=== PATIENT | female | born 1955 | race Hispanic/Latino ===

== ENCOUNTER 2019-01-21 12:36 | Observation (INO) | payer SELFPAY ==
--- OUTSIDE RECORDS SUMMARY | 2019-01-21 12:40 | XMS REPORT ---
:1955 [facility] Address [address] [place] [address] Dr. Cope [address] [place] [id number] Care Team Providers Name Role Phone Unavailable Unavailable Unavailable Problems This patient has no known problems. Allergies, Adverse Reactions, Alerts This patient has no known allergies or adverse reactions. Medications This patient has no known medications.
[2019-01-21] MEDS ORDERED: NA CHLORIDE 0.9% 1,000 ML ONE (13:35)
[2019-01-21 13:45] LABS: Absolute Lymphocytes (CBC) 1.2 K/uL (0.7-4.9); Absolute Monocytes 0.4 K/uL (0.1-1.3); Absolute Neutrophil 3.9 K/uL (1.8-8.0); Basophils % 0.4 % (0-1.3); Eosinophils % 1.4 % (0-4.4); Lymphocytes % 20.8 % (15.3-44.8); MPV 8.8 fL (7.6-11.3); Monocytes % 7.6 % (3.3-12.3)
--- NOTE | 2019-01-21 13:48 | EDPHYS ---
Physician Documentation [facility] Name: Rhina Villarreal Age: 63 yrs Sex: Female : 1955 Arrival Date: 01/21/2019 Time: 12:40 Bed 25 Private MD: ED Physician Anibal Benito HPI: 01/21 13:44 This 63 yrs old Female presents to ER via Ambulatory with complaints of kareem Abnormal Lab Results. 13:44 The patient or guardian reports chest pain that is located primarily in the substernal kareem area. Onset: just prior to arrival. The pain does not radiate. Associated signs and symptoms: Pertinent positives: nausea, shortness of breath. The chest pain is described as a pressure, squeezing. Duration: The patient or guardian reports a single episode, that is now resolved. Severity of pain: At its worst the pain was mild in the emergency department the pain has resolved. The patient has not experienced similar symptoms in the past. Historical: - Allergies: 14:11 Lisinopril; ca1 - Home Meds: 12:50 atorvastatin oral oral [Active]; carvedilol oral oral [Active]; sg - PMHx: 12:50 Hypertension; sg - Immunization history:: Adult Immunizations up to date. - Social history:: Smoking status: Patient/guardian denies using tobacco. - Ebola Screening: : Patient negative for fever greater than or equal to 101.5 degrees Fahrenheit, and additional compatible Ebola Virus Disease symptoms Patient denies exposure to infectious person Patient denies travel to an Ebola-affected area in the 21 days before illness onset No symptoms or risks identified at this time. - Family history:: not pertinent. ROS: 13:44 Constitutional: Negative for fever, chills, and weight loss, Eyes: Negative for injury, kareem pain, redness, and discharge, ENT: Negative for injury, pain, and discharge, Neck: Negative for injury, pain, and swelling, Respiratory: Negative for shortness of breath, cough, wheezing, and pleuritic chest pain, Abdomen/GI: Negative for abdominal pain, nausea, vomiting, diarrhea, and constipation, Back: Negative for injury and pain, : Negative for injury, bleeding, discharge, and swelling, MS/Extremity: Negative for injury and deformity, Skin: Negative for injury, rash, and discoloration, Neuro: Negative for headache, weakness, numbness, tingling, and seizure, Psych: Negative for depression, anxiety, suicide ideation, homicidal ideation, and hallucinations, Allergy/Immunology: Negative for hives, rash, and allergies, Endocrine: Negative for neck swelling, polydipsia, polyuria, polyphagia, and marked weight changes. 13:44 Cardiovascular: Positive for chest pain, of the chest. Exam: 13:44 Constitutional: This is a well developed, well nourished patient who is awake, alert, kareem and in no acute distress. Head/Face: Normocephalic, atraumatic. Eyes: Pupils equal round and reactive to light, extra-ocular motions intact. Lids and lashes normal. Conjunctiva and sclera are non-icteric and not injected. Cornea within normal limits. Periorbital areas with no swelling, redness, or edema. ENT: Nares patent. No nasal discharge, no septal abnormalities noted. Tympanic membranes are normal and external auditory canals are clear. Oropharynx with no redness, swelling, or masses, exudates, or evidence of obstruction, uvula midline. Mucous membranes moist. Neck: Trachea midline, no thyromegaly or masses palpated, and no cervical lymphadenopathy. Supple, full range of motion without nuchal rigidity, or vertebral point tenderness. No Meningismus. Chest/axilla: Normal chest wall appearance and motion. Nontender with no deformity. No lesions are appreciated. Cardiovascular: Regular rate and rhythm with a normal S1 and S2. No gallops, murmurs, or rubs. Normal PMI, no JVD. No pulse deficits. Respiratory: Lungs have equal breath sounds bilaterally, clear to auscultation and percussion. No rales, rhonchi or wheezes noted. No increased work of breathing, no retractions or nasal flaring. Abdomen/GI: Soft, non-tender, with normal bowel sounds. No distension or tympany. No guarding or rebound. No evidence of tenderness throughout. Back: No spinal tenderness. No costovertebral tenderness. Full range of motion. Female : Normal external genitalia. Skin: Warm, dry with normal turgor. Normal color with no rashes, no lesions, and no evidence of cellulitis. MS/ Extremity: Pulses equal, no cyanosis. Neurovascular intact. Full, normal range of motion. Neuro: Awake and alert, GCS 15, oriented to person, place, time, and situation. Cranial nerves II-XII grossly intact. Motor strength 5/5 in all extremities. Sensory grossly intact. Cerebellar exam normal. Normal gait. Psych: Awake, alert, with orientation to person, place and time. Behavior, mood, and affect are within normal limits. Vital Signs: 12:52 BP 177 / 74; Pulse 77; Resp 18; Temp 98.2; Pulse Ox 99% on R/A; Weight 59.87 kg; Height sg 4 ft. 11 in. (149.86 cm); Pain 4/10; 14:11 BP 161 / 79; Pulse 54; Resp 15 S; Pulse Ox 97% on R/A; ca1 15:15 BP 177 / 82; Pulse 60; Resp 16 S; Pulse Ox 58% on R/A; ca1 16:28 BP 176 / 86; Pulse 58; Resp 17; Pulse Ox 97% on R/A; ca1 12:52 Body Mass Index 26.66 (59.87 kg, 149.86 cm) MDM: 13:02 Patient medically screened. [facility] 13:46 Data reviewed: vital signs, nurses notes, lab test result(s), EKG, radiologic studies, kareem plain films. 01/21 13:03 Order name: Basic Metabolic Panel; Complete Time: 14:21 [facility] 01/21 13:03 Order name: CBC with Diff; Complete Time: 13:58 [facility] 01/21 13:03 Order name: LFT's; Complete Time: 14:21 [facility] 01/21 13:03 Order name: Magnesium; Complete Time: 14:21 [facility] 01/21 13:03 Order name: NT PRO-BNP; Complete Time: 14:21 [facility] 01/21 13:03 Order name: PT-INR; Complete Time: 14:21 [facility] 01/21 13:03 Order name: Troponin (emerg Dept Use Only); Complete Time: 14:21 [facility] 01/21 13:03 Order name: XRAY Chest (1 view); Complete Time: 14:21 [facility] 01/21 13:40 Order name: Urine Dipstick--Ancillary (enter results); Complete Time: 14:21 in 01/21 13:03 Order name: EKG; Complete Time: 13:06 kareem 01/21 13:03 Order name: Cardiac monitoring; Complete Time: 13:18 [facility] 01/21 13:03 Order name: EKG - Nurse/Tech; Complete Time: 13:18 [facility] 01/21 13:03 Order name: IV Saline Lock; Complete Time: : [facility] 01/21 13:03 Order name: Labs collected and sent; Complete Time: : [facility] 01/21 13:03 Order name: O2 Per Protocol; Complete Time: 13:18 [facility] 01/21 13:03 Order name: O2 Sat Monitoring; Complete Time: : [facility] 01/21 13:03 Order name: Urine Dipstick-Ancillary (obtain specimen); Complete Time: :18 [facility] Administered Medications: 13:24 Drug: NS 0.9% 1000 ml Route: IV; Rate: 75 ml/hr; Site: left antecubital; ca1 16:35 Follow up: IV Status: Infusion continued upon admission ca1 13:56 Drug: Pepcid 20 mg Route: IVP; Site: left antecubital; ca1 14:23 Follow up: Response: No adverse reaction ca1 13:57 Drug: Aspirin Chewable Tablet 324 mg Route: PO; ca1 15:16 Follow up: Response: No adverse reaction ca1 13:57 Not Given (Patient Refused; Pt reports allergy to Lisinopril): Lisinopril 10 mg PO once ca1 14:10 Drug: Lovenox 1 mg/kg Route: Sub-Q; Site: left lower abdomen; ca1 15:16 Follow up: Response: No adverse reaction ca1 Disposition: 01/21/19 13:47 Hospitalization ordered by Drew Jiménez for Observation. Preliminary diagnosis are Chest pain, unspecified, Essential (primary) hypertension. - Bed requested for Telemetry/MedSurg (observation). - Status is Observation. ca1 - Condition is Stable. - Problem is new. - Symptoms have improved. UTI on Admission? No Signatures: Dispatcher [employer] Arturo Caballero RN RN Anibal Walker MD MD cha Solis, Maria ms Acob, Cheryl, RN RN ca1 Corrections: (The following items were deleted from the chart) 14:11 12:50 Allergies: No Known Allergies; sg ca1 15:47 13:47 Hospitalization Ordered by Drew Jiménez MD for Observation. Preliminary diagnosis ms is Chest pain, unspecified; Essential (primary) hypertension. Bed requested for Telemetry/MedSurg (observation). Status is Observation. Condition is Stable. Problem is new. Symptoms have improved. UTI on Admission? No. [facility] 16:40 15:47 01/21/2019 13:47 Hospitalization Ordered by Drew Jiménez MD for Observation. ca1 Preliminary diagnosis is Chest pain, unspecified; Essential (primary) hypertension. Bed requested for Telemetry/MedSurg (observation). Status is Observation. Condition is Stable. Problem is new. Symptoms have improved. UTI on Admission? No. ms
--- NOTE | 2019-01-21 13:48 | ER ---
Nurse's Notes [facility] Name: Rhina Villarreal Age: 63 yrs Sex: Female : 1955 Arrival Date: 01/21/2019 Time: 12:40 Bed 25 Private MD: Diagnosis: Chest pain, unspecified;Essential (primary) hypertension Presentation: 01/21 12:51 Presenting complaint: Patient states: Sent by the PCP for a low HR, in the 30's and sg having high blood pressure with readings in the 180'. Transition of care: patient was not received from another setting of care. Onset of symptoms was January 21, 2019. Risk Assessment: Do you want to hurt yourself or someone else? Patient reports no desire to harm self or others. Initial Sepsis Screen: Does the patient meet any 2 criteria? No. Patient's initial sepsis screen is negative. Does the patient have a suspected source of infection? No. Patient's initial sepsis screen is negative. Care prior to arrival: None. 12:51 Method Of Arrival: Ambulatory sg 12:51 Acuity: KELVIN 3 sg Historical: - Allergies: 14:11 Lisinopril; ca1 - Home Meds: 12:50 atorvastatin oral oral [Active]; carvedilol oral oral [Active]; sg - PMHx: 12:50 Hypertension; sg - Immunization history:: Adult Immunizations up to date. - Social history:: Smoking status: Patient/guardian denies using tobacco. - Ebola Screening: : Patient negative for fever greater than or equal to 101.5 degrees Fahrenheit, and additional compatible Ebola Virus Disease symptoms Patient denies exposure to infectious person Patient denies travel to an Ebola-affected area in the 21 days before illness onset No symptoms or risks identified at this time. - Family history:: not pertinent. Screenin:25 Abuse screen: Denies threats or abuse. Denies injuries from another. Nutritional ca1 screening: No deficits noted. Tuberculosis screening: No symptoms or risk factors identified. Fall Risk IV access (20 points). Assessment: 13:25 General: Appears in no apparent distress. comfortable, Behavior is calm, cooperative, ca1 appropriate for age. Pain: Complains of pain in anterior aspect of left upper chest Pain does not radiate. Pain currently is 4 out of 10 on a pain scale. Quality of pain is described as squeezing, Pain began last night. Neuro: Level of Consciousness is awake, alert, obeys commands, Oriented to person, place, time, situation. Cardiovascular: Heart tones S1 S2 present Capillary refill < 3 seconds Patient's skin is warm and dry. Rhythm is sinus rhythm. Respiratory: Airway is patent Respiratory effort is even, unlabored, Respiratory pattern is regular, symmetrical, Breath sounds are clear bilaterally. GI: Abdomen is flat, non-distended, Bowel sounds present X 4 quads. Abd is soft and non tender X 4 quads. : No deficits noted. No signs and/or symptoms were reported regarding the genitourinary system. EENT: No deficits noted. No signs and/or symptoms were reported regarding the EENT system. Derm: Skin is intact, is healthy with good turgor, Skin is pink, warm \T\ dry. Musculoskeletal: Circulation, motion, and sensation intact. Capillary refill < 3 seconds, Range of motion: intact in all extremities. 14:11 Reassessment: Patient appears in no apparent distress at this time. Patient and/or ca1 family updated on plan of care and expected duration. Pain level reassessed. Patient is alert, oriented x 3, equal unlabored respirations, skin warm/dry/pink. 15:15 Reassessment: Patient appears in no apparent distress at this time. Patient is alert, ca1 oriented x 3, equal unlabored respirations, skin warm/dry/pink. 16:12 Reassessment: Patient appears in no apparent distress at this time. Patient is alert, ca1 oriented x 3, equal unlabored respirations, skin warm/dry/pink. Called 2nd floor for report. Nurse will call back. Vital Signs: 12:52 BP 177 / 74; Pulse 77; Resp 18; Temp 98.2; Pulse Ox 99% on R/A; Weight 59.87 kg; Height sg 4 ft. 11 in. (149.86 cm); Pain 4/10; 14:11 BP 161 / 79; Pulse 54; Resp 15 S; Pulse Ox 97% on R/A; ca1 15:15 BP 177 / 82; Pulse 60; Resp 16 S; Pulse Ox 58% on R/A; ca1 16:28 BP 176 / 86; Pulse 58; Resp 17; Pulse Ox 97% on R/A; ca1 12:52 Body Mass Index 26.66 (59.87 kg, 149.86 cm) ED Course: 12:40 Patient arrived in ED. mr 12:40 Arm band placed on. sg 12:52 Triage completed. sg 13:00 Robyn Jesus, TONIO is Primary Nurse. ca1 13:02 Anibal Benito MD is Attending Physician. kareem 13:19 EKG done, by anaesthetic technician. reviewed by Anibal Benito MD. sm3 13:25 Patient has correct armband on for positive identification. Placed in gown. Bed in low ca1 position. Call light in reach. Side rails up X 1. bridal gown fitter on. Pulse ox on. NIBP on. Warm blanket given. 13:25 No provider procedures requiring assistance completed. Inserted saline lock: 20 gauge ca1 in left antecubital area, using aseptic technique. ,using aseptic technique. by Martha Hoang, security guard dispatcher Blood collected. 13:38 X-ray completed. Portable x-ray completed in exam room. Patient tolerated procedure sw well. 13:42 XRAY Chest (1 view) In Process Unspecified. EDMS 13:47 Drew Jiménez MD is Hospitalizing Provider. kareem 16:33 Patient admitted, IV remains in place. ca1 Administered Medications: 13:24 Drug: NS 0.9% 1000 ml Route: IV; Rate: 75 ml/hr; Site: left antecubital; ca1 16:35 Follow up: IV Status: Infusion continued upon admission ca1 13:56 Drug: Pepcid 20 mg Route: IVP; Site: left antecubital; ca1 14:23 Follow up: Response: No adverse reaction ca1 13:57 Drug: Aspirin Chewable Tablet 324 mg Route: PO; ca1 15:16 Follow up: Response: No adverse reaction ca1 13:57 Not Given (Patient Refused; Pt reports allergy to Lisinopril): Lisinopril 10 mg PO once ca1 14:10 Drug: Lovenox 1 mg/kg Route: Sub-Q; Site: left lower abdomen; ca1 15:16 Follow up: Response: No adverse reaction ca1 Outcome: 13:47 Decision to Hospitalize by Provider. kareem 16:33 Admitted to Med/surg accompanied by tech, via wheelchair, room 215, with chart, Report ca1 called to Zulema Castaneda RN 16:34 Condition: stable ca1 16:34 Instructed on the need for admit. 16:40 Patient left the ED. ca1 Signatures: Dispatcher [employer] EDArturo Mojica RN RN Anibal Walker MD MD cha Rivera, Bebe mr Sam, Leslie Hall 3 Robyn Jesus RN RN ca1 Corrections: (The following items were deleted from the chart) 14:11 12:50 Allergies: No Known Allergies; ca1
[2019-01-21 13:50] LABS: Protime INR 1.02
--- NOTE | 2019-01-21 13:58 | RAD REPORT ---
EXAM DESCRIPTION: RAD - Chest Single View - 01/21/2019 1:41 pm CLINICAL HISTORY: Chest pain, bradycardia COMPARISON: None. TECHNIQUE: AP portable chest image was obtained 1340 hours . FINDINGS: Lungs are clear. Heart and vasculature are normal. No measurable pleural effusion and no p neumothorax. No acute bony abnormality seen. No acute aortic findings suspected. IMPRESSION: No acute cardiopulmonary process.
[2019-01-21 14:06] LABS: ALT/SGPT 20 U/L (12-78); AST/SGOT 15 U/L (15-37); Albumin 3.8 g/dL (3.4-5.0); Alkaline Phosphatase 110 U/L (45-117); BUN Blood Urea Nitrogen 17 mg/dL (7-18); Bicarbonate 26 mmol/L (21-32); Bilirubin Direct 0.1 mg/dL (0-0.2); Bilirubin Total 0.3 mg/dL (0.2-1.0); Glucose Level 128 mg/dL (74-106); Magnesium 2.2 mg/dL (1.8-2.4); NT PRO-BNP 150 pg/mL (<125); Potassium 3.8 mmol/L (3.5-5.1); Protein, Total 8.3 g/dL (6.4-8.2); Sodium Level 141 mmol/L (136-145); Troponin (Emerg Dept Use Only) < 0.02 ng/mL (0.0-0.045)
[2019-01-21] MEDS ORDERED: ASPIRIN 81 MG CHEWABLE TABLET ONE (14:06)
[2019-01-21] MEDS ORDERED: LISINOPRIL 10 MG TAB ONE (14:06)
[2019-01-21] MEDS ORDERED: FAMOTIDINE 20 MG/2 ML VIAL IV ONE (14:06)
[2019-01-21] MEDS ORDERED: ENOXAPARIN 60 MG/0.6 ML SQ ONE (14:07)
[2019-01-21 14:13] LABS: Urine Blood NEGATIVE (NEG); Urine Glucose NEGATIVE (NEG); Urine Protein NEGATIVE (NEG)
[2019-01-21] MEDS ORDERED: MORPHINE 2 MG/ML SYR IV PRN (17:10)
[2019-01-21] MEDS ORDERED: HYDRALAZINE HCL 20 MG/ML VIAL IV PRN (17:10)
[2019-01-21] MEDS ORDERED: NITROGLYCERIN 0.4 MG/TAB SL PRN (17:10)
[2019-01-21 17:22] VITALS: BMI 26.1
[2019-01-21] MEDS ORDERED: METOPROLOL TAR 25 MG TAB PO SCH (21:00)
[2019-01-21] MEDS ORDERED: ATORVASTATIN 40 MG TAB PO SCH (21:00)
[2019-01-21] MEDS: CARVEDILOL 6.25 MG TAB PO SCH (21:42)
[2019-01-21] MEDS: RANITIDINE 150 MG TABLET PO SCH (21:42)
[2019-01-21] MEDS ORDERED: ACETAMINOPHEN 500 MG TAB PO PRN (22:12)
--- NOTE | 2019-01-22 02:47 | HP ---
Date of Admission: 01/21/2019 Chief Complaint: Chest pain. History Of Present Illness: The patient is a 63-year-old female with past medical history of hypertension and hyperlipidemia; comes in with sudden onset of chest pain that was left-sided, nonradiating, sharp; not associated with any nausea, vomiting, diaphoresis, or shortness of breath. The patient's symptoms are constant, moderate, progressively worsening. The patient decided to come to the ER for further evaluation. The patient's vital signs were stable. Her workup showed a negative troponin level. EKG did not show any acute changes. The patient was then given aspirin, Lovenox, Pepcid, and normal saline bolus. She was then referred for admission. When seen in the ER, she was awake, alert , oriented x3, in some mild distress. Past Medical History: Hypertension, hyperlipidemia. The patient reports some history of gastritis, but not on any current medications. Past Surgical History: The patient had and tubal ligation. Allergies: TO LISINOPRIL. Medications: The patient takes atorvastatin and carvedilol. Family History: Positive for coronary artery disease in the father who had bypass surgery at age of 74. Social History: Patient denies any tobacco use, alcohol use, or illicit drug use. The patient is independent in her activities of daily living. Review of Systems: Eleven point systems reviewed, negative except as per HPI. Physical Examination: Vital Signs: Blood pressure 177/74, pulse 77, respirations 18, temperature 98.2 , pulse ox 99% on room air. General: Awake, alert, oriented x3. Some mild distress. HEENT: Normocephalic, atraumatic. PERRLA. EOMI. Moist mucous membranes. Oropharynx is clear. Conjunctivae are anicteric. Neck: Supple. No JVD. Trachea midline. CV: S1, S2. Regular rate and rhythm. Peripheral pulses present. A 3/6 holosystolic murmur is present. Peripheral pulses present 2+. Respiratory: Clear to auscultation bilaterally. No wheezing or stridor. No use of accessory muscles. Gastrointestinal: Abdomen is soft, nontender, nondistended. Positive bowel sounds. No guarding or rigidity. Extremities: No clubbing, cyanosis, or edema. No calf tenderness. Neuro: Cranial nerves 2 through 12 intact grossly. No focal neurological deficits. Speech is normal. Skin: No rashes. Normal skin turgor. Psych: Mood is okay. Affect is full. Insight and judgment are good. Laboratory Data: Sodium 141, potassium 3.8, chloride 109, CO2 26, BUN 17, creatinine 0.67, glucose 128, calcium 8.6, magnesium 2.2. Troponin less than 0.02. BNP 150. INR 1.02. WBC 5.6, H and H 13.4/40, platelets 245, neutrophils 69%. UA negative. Chest x-ray, personally reviewed, shows no acute cardiopulmonary process. Assessment And Plan: A 63-year-old female with 1. Chest pain. We will start on chest pain guidelines. We will continue with statin, aspirin, beta-jackson, nitroglycerin, and morphine p.r.n. Avoid KADI inhibitors due to allergy to lisinopril. We will consult Cardiology. Repeat cardiac enzymes and EKG as needed. The patient may benefit from cardiac stress test. We will obtain echocardiogram to rule out any wall motion abnormality. HEART score 4. 2. Essential hypertension, not well controlled. We will add p.r.n. hydralazine. 3. Mixed hyperlipidemia. We will obtain lipid panel in a.m. Continue statin. 4. Hyperglycemia, may be acute phase reactant. Given the patient's risk factors, we will check hemoglobin A1c. 5. Deep vein thrombosis prophylaxis. Plan: Admit to Med/Surg, place as observation. We will discuss with Cardiology. Likely discharge in the next 24 hours if ACS is ruled out and cleared by Cardiology. We will place on ranitidine for GI prophylaxis. The patient did report previous history of gastritis. /COREEN Voice ID: [id number] TESS
[2019-01-22 05:30] LABS: Absolute Lymphocytes (CBC) 2.1 K/uL (0.7-4.9); Absolute Monocytes 0.7 K/uL (0.1-1.3); Basophils % 0.6 % (0-1.3); Eosinophils % 1.8 % (0-4.4); Lymphocytes % 29.6 % (15.3-44.8); MPV 8.5 fL (7.6-11.3); RBC Red Blood Cell Count 4.43 M/uL (3.86-4.86)
[2019-01-22 05:50] LABS: Potassium 4.1 mmol/L (3.5-5.1)
[2019-01-22] MEDS ORDERED: REGADENOSON 0.4 MG/5 ML SYR IV ONE (08:06)
--- NOTE | 2019-01-22 08:06 | EKG ---
Test Date: 2019-01-21 Test Time: 13:15:18 Balancing Machine Set Up Worker: MATT MEASUREMENT RESULTS: Intervals: Rate: 60 IA: 148 QRSD: 84 QT: 396 QTc: 396 [place]: P: 64 IA: 148 QRS: 14 T: 66 INTERPRETIVE STATEMENTS: Normal sinus rhythm Normal ECG No previous ECG available for comparison Electronically Signed On 01-22-19 08:04:50 CDT by Nic Rogers
[2019-01-22 08:28] VITALS: O2SAT 96
[2019-01-22] MEDS ORDERED: ASPIRIN EC 81 MG TAB PO SCH (09:00)
[2019-01-22] MEDS ORDERED: ENOXAPARIN 40 MG/0.4 ML SQ SCH (09:00)
--- NOTE | 2019-01-22 09:42 | RAD REPORT ---
EXAM DESCRIPTION: NM - Rest Stress Cardiac Imaging - 01/22/2019 9:21 am CLINICAL HISTORY: Chest pain COMPARISON: None. TECHNIQUE: The patient was administered approximately 10 mCi of Tc 99m Sestamibi prior to resting SP ECT imaging of the heart. The patient was then administered approximately 30 mCi of Tc 99m Sestamibi following exercise or pharmacologic stress. Multiplanar SPECT images were reviewed. FINDINGS: The end diastolic volume is 61 ml, the end systolic volume is 15 ml, and the ejection frac tion is 76 %. Physiologic distribution of the radiopharmaceutical through the myocardium is noted. No stress induce d ischemic defect is seen to suggest stress induced ischemia. No fixed defect is seen to suggest hibe rnating myocardium or scarred myocardium. IMPRESSION: No stress induced ischemia or other suspicious findings.
--- NOTE | 2019-01-22 10:00 | TREADPHA ---
DX: CHEST PAIN Date of Study: 01/22/2019 Ht: 4 11 Wt: 129 lb 7 oz Consulting Physician: DESI MEDICATIONS: TYLENOL, ASPIRIN, LIPITOR, COREG, LOVENOX, APRESOLINE, NITROSTAT HISTORY: 63 YEAR OLD FEMALE WITH COMPLAINTS OF CHEST PAIN. HISTORY OF HYPERTENSION, GASTRITIS, HYPERLIPIDEMIA, NON SMOKER, NON DRINKER. PHYSICIAL EXAMINATION: RESTING B.P.: 188/88 RESTING H.R.: 54 RESTING EKG: SINUS BRADYCARDIA, OTHERWISE NORMAL PROTOCOL: LEXISCAN EXERCISE TIME: 3:30 B.P. AT PEAK STRESS: 139/79 IMPRESSION: LEXISCAN INJECTED, FOLLOWED BY CARDIOLITE PER PROTOCOL. SEE NUCLEAR MEDICINE REPORT. NO SUPRAVENTRICULAR TACHYCARDIA, VENTRICULAR TACHYCARDIA, PREMATURE ATRIAL COMPLEXES OR PREMATURE VENTRICULAR COMPLEXES. PATIENT REPORTED 3/10 CHEST PAIN DURING PROCEDURE. NON DIAGNOSTIC EKG WITH LEXISCAN STRESS.
[2019-01-22] MEDS: RANITIDINE 150 MG TABLET PO SCH (10:01)
[2019-01-22] MEDS: CARVEDILOL 6.25 MG TAB PO SCH (10:01)
--- NOTE | 2019-01-22 13:53 | ECHO ---
HEIGHT: 4 ft 11 in WEIGHT: 129 lb 7 oz DATE OF STUDY: 01/22/[address]: Drew Jiménez MD 2-DIMENSIONAL: YES M.MODE: YES DOPPLER: YES COLOR FLOW: YES TDS: NO PORTABLE: NO DEFINITY: NO BUBBLE STUDY: NO DIAGNOSIS: CHEST PAIN CARDIAC HISTORY: CATHERIZATION: NO SURGERY: NO PROSTHETIC VALVE: NO PACEMAKER: NO MEASUREMENTS (cm) DIASTOLIC (NORMALS) SYSTOLIC (NORMALS) IVSd 0.9 (0.6-1.2) LA Diam 3.1 (1.9-4.0) LVEF 78% LVIDd 4.4 (3.5-5.7) LVIDs 2.4 (2.0-3.5) %FS 46% LVPWd 1.0 (0.6-1.2) Ao Diam 2.4 (2.0-3.7) 2 DIMENSIONAL ASSESSMENT: RIGHT ATRIUM: NORMAL LEFT ATRIUM: NORMAL RIGHT VENTRICLE: NORMAL LEFT VENTRICLE: NORMAL TRICUSPID VALVE: NORMAL MITRAL VALVE: NORMAL PULMONIC VALVE: NORMAL AORTIC VALVE: NORMAL PERICARDIAL EFFUSION: NONE AORTIC ROOT: NORMAL LEFT VENTRICULAR WALL MOTION: NORMAL. DOPPLER/COLOR FLOW: NORMAL. COMMENTS: NORMAL 2D ECHOCARDIOGRAM WITH DOPPLER. TECHNOLOGIST: ALEXY MARCUM
[2019-01-22 14:52] VITALS: BP 128/72; TEMP 98.3
--- NOTE | 2019-01-22 23:49 | DS ---
Date of Discharge: 01/22/2019 Consultants: Dr. Rogers with Cardiology. Procedures: Cardiac stress test which was negative for any stress-induced ischemia. Discharge Diagnoses: 1.Chest pain, ACS ruled out. 2.Essential hypertension, not well controlled. 3.Mixed hyperlipidemia. 4.Hyperglycemia. 5.Gastritis. Hospital Course: The patient is a 63-year-old female with past medical history of hypertension and h yperlipidemia, who comes in with chest pain. The patient was admitted to the hospital to rule out ac asa'[place] coronary syndrome. The patient was started on chest pain guidelines. Her cardiac enzymes were n egative. She had improvement in her condition. Cardiology was consulted. Cardiac stress test was o btained, which was negative, did not show any stress-induced ischemia. Her ejection fraction was wit hin normal limits. Echocardiogram was also done. The patient's symptoms had improved. She did repo rt being diagnosed with gastritis approximately 1 year ago after endoscopy. She was on proton pump i nhibitors, however, had stopped and has not followed up with her GI. The patient was cleared by card iology standpoint as her symptoms resolved, ACS was ruled out, and cardiac stress test was negative. The patient was then discharged home in a stable condition. Activity: As tolerated. Medications: As per medication reconciliation list. Followup: Follow up with primary care physician in 2-3 days. Follow up with newspaper photographer, Dr. Milagros kaur, in 2 weeks. Follow up with GI in 2 weeks. Return to ER for worsening condition. Diet: Heart healthy. Physical Examination: General: Awake, alert, oriented x3. No acute distress. CV: S1, S2. No murmurs. Respiratory: Moving air well bilaterally. No wheezing. Gastrointestinal: Abdomen is soft, nontender, nondistended. Positive bowel sounds. Extremities: No clubbing, cyanosis, or edema. Neuro: Nonfocal. SA/MODL Voice ID: [id number] Report ID: [id number]
== END 2019-01-22 13:12 | disposition home or self-care (01) ==
LOC: ER 12:36 → ERHOLD 14:40 → 2ND 16:33
PROVIDERS: ADMIT Family Medicine; ATTEND Family Medicine
DX: R07.9 Chest pain, unspecified (principal); I10 Essential (primary) hypertension; E78.2 Mixed hyperlipidemia; R73.9 Hyperglycemia, unspecified; K29.70 Gastritis, unspecified, without bleeding; Z79.899 Other long term (current) drug therapy; Z82.49 Family history of ischemic heart disease and other diseases of the circulatory system
CPT/HCPCS: 36415; 71045; 78452; 80048; 80061; 80076; 81003; 83036; 83735; 83880; 84484; 85025; 85610; 93005; 93017; 93306; 94760; 96361; 96372; 96374; 99285; A9500; G0378; J1650; J2785; J7030

== ENCOUNTER 2020-09-22 16:09 | Emergency (ER) | payer SELFPAY ==
--- NOTE | 2020-09-22 21:07 | RAD REPORT ---
EXAM DESCRIPTION: RAD - Chest Single View - 09/22/2020 9:00 pm CLINICAL HISTORY: CHEST PAIN Chest pain. COMPARISON: Chest Single View dated 01/21/2019 FINDINGS: Portable technique limits examination quality. The lungs are grossly clear. The heart is normal in size. No displaced fractures. IMPRESSION: No acute intrathoracic process suspected.
[2020-09-22 21:19] LABS: Absolute Lymphocytes (CBC) 2.3 K/uL (0.7-4.9); Basophils % 0.7 % (0-1.3); Hematocrit 39.8 % (36.0-45.0); MPV 7.7 fL (7.6-11.3); RBC Red Blood Cell Count 4.72 M/uL (3.86-4.86)
[2020-09-22 21:24] LABS: Protime INR 1.05
[2020-09-22 21:44] LABS: ALT/SGPT 26 U/L (12-78); AST/SGOT 17 U/L (15-37); Alkaline Phosphatase 120 U/L (45-117); BUN Blood Urea Nitrogen 17 mg/dL (7-18); Bicarbonate 26 mmol/L (21-32); Bilirubin Direct < 0.1 mg/dL (0-0.2); Bilirubin Total 0.5 mg/dL (0.2-1.0); Glucose Level 90 mg/dL (74-106); Magnesium 2.5 mg/dL (1.8-2.4); NT PRO-BNP 51 pg/mL (<125); Potassium 3.7 mmol/L (3.5-5.1); Protein, Total 8.6 g/dL (6.4-8.2); Sodium Level 142 mmol/L (136-145); Troponin (Emerg Dept Use Only) < 0.02 ng/mL (0.0-0.045)
[2020-09-22] MEDS ORDERED: HYDRALAZINE HCL 20 MG/ML VIAL ONE (22:37)
--- NOTE | 2020-09-22 23:19 | ER ---
Nurse's Notes [facility] Name: Rhina Villarreal Age: 64 yrs Sex: Female : 1955 Arrival Date: 09/22/2020 Time: 16:11 Bed 16 Private MD: Diagnosis: Hypertensive urgency;Chest pain, unspecified Presentation: 09/22 16:25 Chief complaint: Patient states: BISHOP, CP, and elevated BP for 2-3 days. BP at home 191 ll1 systolic. + nausea. Coronavirus screen: Client denies travel out of the [place] in the last 14 days. Ebola Screen: Patient denies travel to an Ebola-affected area in the 21 days before illness onset. Initial Sepsis Screen: Does the patient meet any 2 criteria? No. Patient's initial sepsis screen is negative. Does the patient have a suspected source of infection? Yes: S/S of meningitis or endocarditis Other: BISHOP. Risk Assessment: Do you want to hurt yourself or someone else? Patient reports no desire to harm self or others. 16:25 Method Of Arrival: Ambulatory ll1 16:25 Acuity: KELVIN 3 ll1 16:26 Onset of symptoms was September 20, 2020. ll1 Historical: - Allergies: 16:25 Lisinopril; ll1 - Home Meds: 21:43 atorvastatin Oral [Active]; carvedilol Oral [Active]; em - PMHx: 16:25 Hypertension; High Cholesterol; ll1 - Immunization history:: Flu vaccine is up to date. - Social history:: Smoking status: Patient denies any tobacco usage or history of. Screenin:45 Abuse screen: Denies threats or abuse. Nutritional screening: No deficits noted. vg1 Tuberculosis screening: No symptoms or risk factors identified. Fall Risk No fall in past 12 months (0 pts). No secondary diagnosis (0 pts). IV access (20 points). Ambulatory Aid- None/Bed Rest/Nurse Assist (0 pts). Gait- Normal/Bed Rest/Wheelchair (0 pts) Mental Status- Oriented to own ability (0 pts). Total Wright Fall Scale indicates No Risk (0-24 pts). Assessment: 21:41 General: Appears in no apparent distress. comfortable, Behavior is calm, cooperative. em Pain: Complains of pain in head Pain currently is 6 out of 10 on a pain scale. Neuro: Level of Consciousness is awake, alert, obeys commands, Oriented to person, place, time, situation. Cardiovascular: Patient's skin is warm and dry. Respiratory: Airway is patent Respiratory effort is even, unlabored, Respiratory pattern is regular, symmetrical. GI: Reports nausea, Patient currently denies diarrhea, vomiting. : No signs and/or symptoms were reported regarding the genitourinary system. EENT: No signs and/or symptoms were reported regarding the EENT system. Derm: Skin is intact, is healthy with good turgor. Musculoskeletal: Circulation, motion, and sensation intact. 22:44 Reassessment: Patient appears in no apparent distress at this time. No changes from vg1 previously documented assessment. Patient and/or family updated on plan of care and expected duration. Pain level reassessed. Patient is alert, oriented x 3, equal unlabored respirations, skin warm/dry/pink. 23:21 Reassessment: Patient appears in no apparent distress at this time. Patient and/or vg1 family updated on plan of care and expected duration. Pain level reassessed. Patient is alert, oriented x 3, equal unlabored respirations, skin warm/dry/pink. Vital Signs: 16:25 BP 186 / 89; Pulse 78; Resp 16; Temp 98.7; Pulse Ox 98% on R/A; ll1 16:26 Weight 59.42 kg; Height 4 ft. 10 in. (147.32 cm); Pain 0/10; ll1 20:43 BP 158 / 89 RA (auto/reg); Pulse 81; Resp 18; Temp 98.2; Pulse Ox 98% on R/A; jp3 21:00 BP 151 / 94; Pulse 57; Resp 14; Pulse Ox 97% on R/A; em 22:00 BP 143 / 74; Pulse 54; Resp 16; Pulse Ox 98% on R/A; vg1 22:30 BP 131 / 68; Pulse 56; Resp 16; Pulse Ox 100% on R/A; vg1 23:00 BP 144 / 72; Pulse 62; Resp 16; Pulse Ox 99% on R/A; vg1 16:26 Body Mass Index 27.38 (59.42 kg, 147.32 cm) ll1 Lina Coma Score: 09/23 04:40 Eye Response: spontaneous(4). Verbal Response: oriented(5). Motor Response: obeys tw4 commands(6). Total: 15. ED Course: 09/22 16:11 Patient arrived in ED. ds1 16:24 Arm band placed on. ll1 16:26 Triage completed. ll1 16:37 Arsh Arzola MD is Attending Physician. kdr 16:37 EKG completed in triage. Results shown to MD. ll1 19:30 Attending Physician role handed off by Arsh Arzola MD tw4 19:30 Raul Boothe MD is Attending Physician. tw4 20:43 Flakita Ramsey, RN is Primary Nurse. vg1 20:44 Bed in low position. Call light in reach. Side rails up X 1. Warm blanket given. Verbal jp3 reassurance given. equipment monitor phototypesetting on. Pulse ox on. NIBP on. 20:44 Patient maintains SpO2 saturation greater than 95% on room air. jp3 21:00 XRAY Chest (1 view) In Process Unspecified. EDMS 23:18 Nic Rogers MD is Referral Physician. tw4 23:18 Reginald Mancini MD is Referral Physician. tw4 23:48 No provider procedures requiring assistance completed. IV discontinued, intact, vg1 bleeding controlled, No redness/swelling at site. Pressure dressing applied. Administered Medications: 23:36 Not Given (BP 131/68 Provider notified.): hydrALAZINE 20 mg IV at bolus once vg1 Outcome: 23:19 Discharge ordered by MD. tw4 23:49 Discharged to home ambulatory. vg1 23:49 Condition: stable 23:49 Discharge instructions given to patient, Instructed on discharge instructions, follow up and referral plans. Demonstrated understanding of instructions, follow-up care. 23:49 Patient left the ED. vg1 Signatures: Dispatcher [employer] EDMS Arsh Arzola MD MD kdr Munoz, Edgar, RN RN Lilliam Garcia ds1 Raul Boothe MD MD tw4 Jhonatan Garner jp3 Flakita Ramsey, TONIO RN vg1 Dianna Clemons RN RN ll1 Corrections: (The following items were deleted from the chart) 16:29 16:25 Chief complaint: Patient states: BISHOP and elevated BP. BP at home 199 systolic. ll1 ll1
--- NOTE | 2020-09-22 23:19 | EDPHYS ---
Physician Documentation [facility] Name: Rhina Villarreal Age: 64 yrs Sex: Female : 1955 Arrival Date: 09/22/2020 Time: 16:11 Bed 16 Private MD: ED Physician Raul Boothe HPI: 09/23 04:40 This 64 yrs old Female presents to ER via Ambulatory with complaints of Blood tw4 Pressure Problem, Headache. 04:40 The patient complains of pain to the forehead. The patient describes the headache as a tw4 pressure. Onset: The symptoms/episode began/occurred today. Severity of symptoms: At its worst the pain was mild. Headache History: Denies prior headaches. The patient has not experienced similar symptoms in the past. Historical: - Allergies: 09/22 16:25 Lisinopril; ll1 - Home Meds: 21:43 atorvastatin Oral [Active]; carvedilol Oral [Active]; em - PMHx: 16:25 Hypertension; High Cholesterol; ll1 - Immunization history:: Flu vaccine is up to date. - Social history:: Smoking status: Patient denies any tobacco usage or history of. ROS: 09/23 04:40 Constitutional: Negative for fever, chills, and weight loss, Eyes: Negative for injury, tw4 pain, redness, and discharge, Cardiovascular: Negative for chest pain, palpitations, and edema, Respiratory: Negative for shortness of breath, cough, wheezing, and pleuritic chest pain, Abdomen/GI: Negative for abdominal pain, nausea, vomiting, diarrhea, and constipation, Back: Negative for injury and pain, MS/Extremity: Negative for injury and deformity, Skin: Negative for injury, rash, and discoloration. Neuro: Positive for headache. Exam: 09/22 16:37 ECG was reviewed by the Attending Physician. kdr 09/23 04:40 Constitutional: This is a well developed, well nourished patient who is awake, alert, tw4 and in no acute distress. Head/Face: Normocephalic, atraumatic. Chest/axilla: Normal chest wall appearance and motion. Nontender with no deformity. No lesions are appreciated. Cardiovascular: Regular rate and rhythm with a normal S1 and S2. No gallops, murmurs, or rubs. Normal PMI, no JVD. No pulse deficits. Respiratory: Lungs have equal breath sounds bilaterally, clear to auscultation and percussion. No rales, rhonchi or wheezes noted. No increased work of breathing, no retractions or nasal flaring. Abdomen/GI: Soft, non-tender, with normal bowel sounds. No distension or tympany. No guarding or rebound. No evidence of tenderness throughout. Back: No spinal tenderness. No costovertebral tenderness. Full range of motion. MS/ Extremity: Pulses equal, no cyanosis. Neurovascular intact. Full, normal range of motion. Neuro: Awake and alert, GCS 15, oriented to person, place, time, and situation. Cranial nerves II-XII grossly intact. Motor strength 5/5 in all extremities. Sensory grossly intact. Cerebellar exam normal. Normal gait. Vital Signs: 09/22 16:25 BP 186 / 89; Pulse 78; Resp 16; Temp 98.7; Pulse Ox 98% on R/A; ll1 16:26 Weight 59.42 kg; Height 4 ft. 10 in. (147.32 cm); Pain 0/10; ll1 20:43 BP 158 / 89 RA (auto/reg); Pulse 81; Resp 18; Temp 98.2; Pulse Ox 98% on R/A; jp3 21:00 BP 151 / 94; Pulse 57; Resp 14; Pulse Ox 97% on R/A; em 22:00 BP 143 / 74; Pulse 54; Resp 16; Pulse Ox 98% on R/A; vg1 22:30 BP 131 / 68; Pulse 56; Resp 16; Pulse Ox 100% on R/A; vg1 23:00 BP 144 / 72; Pulse 62; Resp 16; Pulse Ox 99% on R/A; vg1 16:26 Body Mass Index 27.38 (59.42 kg, 147.32 cm) ll1 Lina Coma Score: 09/23 04:40 Eye Response: spontaneous(4). Verbal Response: oriented(5). Motor Response: obeys tw4 commands(6). Total: 15. MDM: 09/22 20:38 Patient medically screened. tw4 09/23 04:40 Differential diagnosis: cerebral abscess, cervical epidural bleed, trigeminal tw4 neuralgia, uremia. Data reviewed: vital signs, nurses notes. Counseling: I had a detailed discussion with the patient and/or guardian regarding: the historical points, exam findings, and any diagnostic results supporting the discharge/admit diagnosis. Special discussion: I discussed with the patient/guardian in detail that at this point there is no indication for admission to the hospital. It is understood, however, that if the symptoms persist or worsen the patient needs to return immediately for re-evaluation. 09/22 20:39 Order name: Basic Metabolic Panel; Complete Time: 22:29 09/22 20:39 Order name: CBC with Diff; Complete Time: 22:29 09/22 20:39 Order name: LFT's; Complete Time: 22:29 09/22 20:39 Order name: Magnesium; Complete Time: 22:29 09/22 20:39 Order name: NT PRO-BNP; Complete Time: 22:29 09/22 20:39 Order name: PT-INR; Complete Time: 22:29 09/22 20:39 Order name: Troponin (emerg Dept Use Only); Complete Time: 22:29 09/22 20:39 Order name: XRAY Chest (1 view); Complete Time: 22:29 09/22 20:39 Order name: EKG; Complete Time: 20:40 09/22 20:39 Order name: Cardiac monitoring; Complete Time: 22:23 09/22 20:39 Order name: EKG - Nurse/Tech; Complete Time: 20:44 09/22 20:39 Order name: IV Saline Lock; Complete Time: 22:23 09/22 22:28 Order name: Troponin (emerg Dept Use Only) 09/22 20:39 Order name: Labs collected and sent; Complete Time: 22:23 09/22 20:39 Order name: O2 Per Protocol; Complete Time: 20:44 09/22 20:39 Order name: O2 Sat Monitoring; Complete Time: 20:44 EC/12 16:37 Rate is 71 beats/min. Rhythm is regular, Normal Sinus Rhythm with No ectopy. QRS [place] kdr is Normal. [place] interval is normal. QRS interval is normal. QT interval is normal. Clinical impression: Normal ECG. Administered Medications: 23:36 Not Given (BP 131/68 Provider notified.): hydrALAZINE 20 mg IV at bolus once vg1 Disposition: 09/22/20 23:19 Discharged to Home. Impression: Hypertensive urgency, Chest pain, unspecified. - Condition is Stable. - Discharge Instructions: Nonspecific Chest Pain, Hypertension, Pain Without a Known Cause, Managing Your Hypertension. - Medication Reconciliation Form, Thank You Letter, Antibiotic Education, Prescription Opioid Use form. - Follow up: Private Physician; When: Upon discharge from the Emergency Department; Reason: Recheck today's complaints, Continuance of care, Re-evaluation by your physician. Follow up: Nic Rogers MD; When: Upon discharge from the Emergency Department; Reason: Recheck today's complaints, Continuance of care, Re-evaluation by your physician. Follow up: Reginald Mancini MD; When: Upon discharge from the Emergency Department; Reason: Recheck today's complaints, Continuance of care, Re-evaluation by your physician. - Problem is new. - Symptoms have improved. Signatures: Dispatcher [employer] EDArsh Peterson MD MD [facility] Abilio East RN RN em Raul Boothe MD MD tw4 Flakita Ramsey RN RN vg1 Dianna Clemons RN RN ll1 Corrections: (The following items were deleted from the chart) 23:49 23:19 09/22/2020 23:19 Discharged to Home. Impression: Hypertensive urgency; Chest vg1 pain, unspecified. Condition is Stable. Forms are Medication Reconciliation Form, Thank You Letter, Antibiotic Education, Prescription Opioid Use. Follow up: Private Physician; When: Upon discharge from the Emergency Department; Reason: Recheck today's complaints, Continuance of care, Re-evaluation by your physician. Follow up: Nic Rogers; When: Upon discharge from the Emergency Department; Reason: Recheck today's complaints, Continuance of care, Re-evaluation by your physician. Follow up: Reginald Mancini; When: Upon discharge from the Emergency Department; Reason: Recheck today's complaints, Continuance of care, Re-evaluation by your physician. Problem is new. Symptoms have improved. tw4
[2020-09-22 23:56] VITALS: TEMP 98.2
[2020-09-23 00:14] VITALS: BP 144/72; O2SAT 99
--- NOTE | 2020-09-24 07:55 | EKG ---
Test Date: 2020-09-22 Test Time: 16:34:45 Diamond Polisher: LML MEASUREMENT RESULTS: Intervals: Rate: 71 [place]: 146 QRSD: 80 QT: 386 QTc: 419 [place]: P: 66 [place]: 146 QRS: 44 T: 60 INTERPRETIVE STATEMENTS: Normal sinus rhythm Normal ECG Compared to ECG 01/21/2019 13:15:18 No significant changes Electronically Signed On 09-24-20 07:53:14 STOCK ORDER LISTER by Garcia Jordan
== END 2020-09-22 23:49 | disposition home or self-care (01) ==
LOC: ER 16:09
DX: I16.0 Hypertensive urgency (principal); R07.9 Chest pain, unspecified; I10 Essential (primary) hypertension; E78.00 Pure hypercholesterolemia, unspecified; Z88.8 Allergy status to other drugs, medicaments and biological substances
CPT/HCPCS: 36415; 71045; 80048; 80076; 83735; 83880; 84484; 85025; 85610; 93005; 99284; J0360